=== PATIENT | female | born 1995 | race Two or more races ===

== ENCOUNTER 2022-04-19 19:20 | Emergency (ER) | payer OTHER ==
[~2022-04-19] VITALS: Ht 170.2 cm; Wt 76.2 kg
[2022-04-19] MEDS ORDERED: MUPIROCIN22 GM TOP (20:36)
== END 2022-04-19 20:40 | disposition home or self-care (01) ==
LOC: ER 19:20
DX: L08.89 Other specified local infections of the skin and subcutaneous tissue (principal)